=== PATIENT | female | born 1990 | race Caucasian/White ===

== ENCOUNTER 2018-08-24 19:12 | Emergency (ER) | payer OTHER ==
[~2018-08-24] VITALS: Ht 167.6 cm; Wt 99.3 kg
[~2018-08-24 19:12] MED LIST: HYDROXYZINE HCL25 M1 PO; MEDROLDOSEPACK PO; PREDNISONE 10 M10 MG PO; ZOLOFT25 MG PO
[2018-08-24] MEDS ORDERED: ZOLOFT100 MG PO (19:24)
[2018-08-24] MEDS ORDERED: CLONIDINE0.1 PO (19:25)
[2018-08-24] MEDS ORDERED: LAMOTRIGINE150 MG PO (19:25)
[2018-08-24] MEDS ORDERED: ROBAXIN 750 MG750 M1 PO (21:05)
[2018-08-24] MEDS ORDERED: IBUPROFEN 800800 MG PO (21:05)
[2018-08-24 21:30] VITALS: BP 132/94
== END 2018-08-24 21:31 | disposition home or self-care (01) ==
LOC: M.ERS 19:12
DX: S13.4XXA Sprain of ligaments of cervical spine, initial encounter (principal); R51 Headache; Z91.040 Latex allergy status; V87.7XXA Person injured in collision between other specified motor vehicles (traffic), initial encounter; Y93.89 Activity, other specified; Y92.89 Other specified places as the place of occurrence of the external cause; Y99.8 Other external cause status